=== PATIENT | female | born 1980 | race African-American/Black ===

== ENCOUNTER 2025-02-22 13:01 | Observation (INO) | payer OTHER ==
[2025-02-22 13:40] LABS: #Basophils 0.04 10x3/uL (0.0-0.2); #Eosinophils 0.39 10x3/uL (0.0-0.5); #Monocytes 0.50 10x3/uL (0.0-1.1); #Neutrophils 2.70 10x3/uL (1.5-8.4); %Basophils 0.6 % (0.0-2.0); %Eosinophils 6.0 % (0.0-6.0); %Lymphocytes 43.8 % (18.0-47.0); %Monocytes 7.7 % (0.0-10.0); %Neutrophils 41.6 % (40.0-75.0); Hematocrit 42.7 % (34.9-44.5); Hemoglobin 13.4 g/dL (12.0-15.5); Mean Corpuscular Hemoglobin 25.9 pg (27.0-33.0); Mean Corpuscular Volume 82.6 fL (81.6-98.3); Platelet Count 262 10x3/uL (150-450); Red Blood Cell (RBC) Count 5.17 10x6/uL (3.90-5.03); White Blood Cell (WBC) Count 6.50 10x3/uL (3.5-10.5)
[2025-02-22] MEDS ORDERED: Aspirin Chewable 81 MG TAB ONE (13:51)
[2025-02-22] MEDS ORDERED: cloNIDine 0.1 MG TAB ONE (13:51)
[2025-02-22 13:58] LABS: ALT (SGPT) 15 U/L (Less than 34); AST (SGOT) 16 U/L (11-34); Albumin 3.6 g/dL (3.1-4.5); Alkaline Phosphatase 42 U/L (40-110); Anion Gap 15 mmol/L (10-20); BUN (Urea Nitrogen) 41 mg/dL (7.0-18.7); Bilirubin, Total 0.2 mg/dL (0.3-1.2); Calc. Creatinine Clearance 0 mL/min (70-130); Calcium 9.1 mg/dL (7.8-10.44); Carbon Dioxide 29 mmol/L (22-29); Chloride 103 mmol/L (98-107); Globulin 3.9 g/dL (2.4-3.5); Glucose 109 mg/dL (70-105); Potassium 3.9 mmol/L (3.5-5.1); Sodium 143 mmol/L (136-145)
[2025-02-22 14:04] LABS: Troponin I Less than 0.010 ng/mL (< 0.028)
[2025-02-22] MEDS ORDERED: Nitroglycerin 2% Ointment 1 INCH/1 GM Packet ONE (16:17)
[2025-02-22] MEDS ORDERED: Nitroglycerin 0.4 MG TAB (25 Tab Bottle) SL PRN (17:28)
[2025-02-22] MEDS ORDERED: Senokot S 8.6-50 MG TAB PO PRN (17:28)
[2025-02-22] MEDS ORDERED: Melatonin 3 MG TAB PO PRN (17:28)
[2025-02-22 17:35] VITALS: BMI 42.5
[2025-02-22] MEDS: NIFEdipine XL 30 MG ER.TAB PO SCH (17:58)
[2025-02-22] MEDS: Lisinopril 20 MG TAB PO SCH (17:58)
[2025-02-22 18:41] LABS: Troponin I Less than 0.010 ng/mL (< 0.028)
[2025-02-22 21:24] LABS: Troponin I Less than 0.010 ng/mL (< 0.028)
[2025-02-22] MEDS: cloNIDine 0.1 MG TAB PO SCH (21:41)
[2025-02-22] MEDS: Acetaminophen 325 MG TAB PO PRN (21:44)
[2025-02-23 04:47] LABS: #Basophils 0.03 10x3/uL (0.0-0.2); #Eosinophils 0.41 10x3/uL (0.0-0.5); #Monocytes 0.31 10x3/uL (0.0-1.1); #Neutrophils 2.37 10x3/uL (1.5-8.4); %Basophils 0.5 % (0.0-2.0); %Eosinophils 7.1 % (0.0-6.0); %Lymphocytes 46.1 % (18.0-47.0); %Monocytes 5.3 % (0.0-10.0); %Neutrophils 40.8 % (40.0-75.0); Hematocrit 44.8 % (34.9-44.5); Hemoglobin 14.1 g/dL (12.0-15.5); Mean Corpuscular Hemoglobin 25.6 pg (27.0-33.0); Mean Corpuscular Volume 81.3 fL (81.6-98.3); Platelet Count 215 10x3/uL (150-450); Red Blood Cell (RBC) Count 5.51 10x6/uL (3.90-5.03); White Blood Cell (WBC) Count 5.81 10x3/uL (3.5-10.5)
[2025-02-23 05:05] LABS: Cardiac Risk 4.5 (Less than 4.5); Cholesterol 217 mg/dl (< 200 Desired); HDL Cholesterol 48 mg/dL (>60 Neg Risk); LDL Cholesterol, Calculated 113 mg/dL; Triglycerides 282 mg/dL (Less than 150)
[2025-02-23 05:28] LABS: Anion Gap 16 mmol/L (10-20); BUN (Urea Nitrogen) 37 mg/dL (7.0-18.7); Calc. Creatinine Clearance 50 mL/min (70-130); Calcium 8.9 mg/dL (7.8-10.44); Carbon Dioxide 25 mmol/L (22-29); Chloride 101 mmol/L (98-107); Glucose 129 mg/dL (70-105); Potassium 3.4 mmol/L (3.5-5.1); Sodium 139 mmol/L (136-145)
[2025-02-23] MEDS: Lisinopril 20 MG TAB PO SCH (08:57)
[2025-02-23] MEDS: Aspirin Chewable 81 MG TAB PO SCH (08:58)
[2025-02-23] MEDS: NIFEdipine XL 60 MG ER.TAB PO SCH (08:58)
[2025-02-23] MEDS ORDERED: Metoprolol Succinate XL 50 MG ER.TAB PO SCH (09:00)
[2025-02-23 17:19] VITALS: BP 139/77; TEMP 97.8
== END 2025-02-23 17:31 | disposition home or self-care (01) ==
LOC: CSHERS 13:01 → CSHTELE 15:33
PROVIDERS: ADMIT Internal Medicine; ATTEND Internal Medicine
PROC: B24BZZZ Ultrasonography of Heart with Aorta (ICD-10-PCS; principal; 2025-02-23)
DX: R07.2 Precordial pain (principal); I16.0 Hypertensive urgency; I12.9 Hypertensive chronic kidney disease with stage 1 through stage 4 chronic kidney disease, or unspecified chronic kidney disease; N18.9 Chronic kidney disease, unspecified; N17.9 Acute kidney failure, unspecified; E78.5 Hyperlipidemia, unspecified; E03.9 Hypothyroidism, unspecified; Z90.49 Acquired absence of other specified parts of digestive tract; Z79.890 Hormone replacement therapy; Z79.899 Other long term (current) drug therapy
CPT/HCPCS: 36415; 71045; 80048; 80053; 80061; 83690; 84484; 85025; 93005; 93306; 94760; G0378